=== PATIENT | male | born 1970 | race Caucasian/White ===

== ENCOUNTER 2022-09-10 06:16 | Emergency (ER) | payer OTHER ==
[~2022-09-10] VITALS: Ht 167.6 cm; Wt 70.3 kg
[~2022-09-10 06:16] MED LIST: AMOX500 PO; CLAR500 PO; HYDACE5325 PO; OMEP20ER PO
[2022-09-10] MEDS ORDERED: Flomax0.4 MG PO (07:03)
== END 2022-09-10 07:27 | disposition home or self-care (01) ==
LOC: ER 06:16
DX: R33.9 Retention of urine, unspecified (principal); Z88.5 Allergy status to narcotic agent; Z79.899 Other long term (current) drug therapy
CPT/HCPCS: 51702; 51798; 99283-25; A9270

== ENCOUNTER 2023-07-10 09:49 | Emergency (ER) | payer OTHER ==
[~2023-07-10] VITALS: Ht 175.3 cm; Wt 69.8 kg
[~2023-07-10 09:49] MED LIST changes: +Flomax0.4 MG PO
[2023-07-10 10:34] VITALS: BP 137/87
[2023-07-10] MEDS ORDERED: Percocet 5-3251 EACH PO (11:47)
== END 2023-07-10 11:51 | disposition home or self-care (01) ==
LOC: ER 09:49
DX: S20.411A Abrasion of right back wall of thorax, initial encounter (principal); Z88.5 Allergy status to narcotic agent; W10.9XXA Fall (on) (from) unspecified stairs and steps, initial encounter; Y92.009 Unspecified place in unspecified non-institutional (private) residence as the place of occurrence of the external cause; Y93.01 Activity, walking, marching and hiking
CPT/HCPCS: 71101; 99283-25; A9270

== ENCOUNTER 2024-03-04 11:19 | Emergency (ER) | payer OTHER ==
[~2024-03-04] VITALS: Ht 175.3 cm; Wt 69.4 kg
[~2024-03-04 11:19] MED LIST changes: +Percocet 5-3251 EACH PO
[2024-03-04 11:23] VITALS: BP 133/78
[2024-03-04] MEDS ORDERED: ALBU90OI INH (11:44)
[2024-03-04] MEDS ORDERED: OMEP20ER PO (11:45)
[2024-03-04] MEDS ORDERED: TRAZ50 PO (11:45)
== END 2024-03-04 12:11 | disposition home or self-care (01) ==
LOC: ER 11:19
DX: S61.212A Laceration without foreign body of right middle finger without damage to nail, initial encounter (principal); W26.9XXA Contact with unspecified sharp object(s), initial encounter; Z79.899 Other long term (current) drug therapy; Z88.5 Allergy status to narcotic agent
CPT/HCPCS: 12001; 99282-25

== ENCOUNTER → 2025-05-10 | Outpatient (CLI) | payer OTHER ==
[~2025-05-10] MED LIST changes: +ALBU90OI INH; +TRAZ50 PO
== END ==
LOC: LAB 13:38 → LAB SHORT 13:38
DX: N41.0 Acute prostatitis (principal); R10.20 Pelvic and perineal pain unspecified side
CPT/HCPCS: 87086